=== PATIENT | female | born 1965 ===

== ENCOUNTER 2021-01-28 04:33 | Day surgery (SDC) | payer OTHER ==
[2021-01-27 08:33] VITALS: BMI 39.3
[2021-01-28 08:20] VITALS: TEMP 97.3
[2021-01-28 08:31] VITALS: PULSE 64
[2021-01-28 09:27] VITALS: BP 130/92
== END 2021-01-28 09:27 | disposition home or self-care (01) ==
LOC: JASU-ENDO 04:33
PROVIDERS: ATTEND Internal Medicine Gastroenterology
PROC: 0DB78ZX Excision of Stomach, Pylorus, Via Natural or Artificial Opening Endoscopic, Diagnostic (ICD-10-PCS; 2021-01-28)
PROC: 0DJD8ZZ Inspection of Lower Intestinal Tract, Via Natural or Artificial Opening Endoscopic (ICD-10-PCS; principal; 2021-01-28 08:00)
DX: Z12.11 Encounter for screening for malignant neoplasm of colon (principal); K29.70 Gastritis, unspecified, without bleeding; R10.9 Unspecified abdominal pain
CPT/HCPCS: 43239; G0121; 81025; 88305-TC; 88342-TC